=== PATIENT | male | born 1985 | race Caucasian/White ===

== ENCOUNTER → 2020-01-09 | Outpatient (CLI) | payer MEDICAID ==
--- NOTE | 2020-01-09 08:04 | MR ---
EXAMINATION TYPE: MR knee LT wo con DATE OF EXAM: 01/09/2020 7:38 AM COMPARISON: NONE HISTORY: Pain on Medial part of Left Knee. Hyperextended Knee, Swelling now after walking on it TECHNIQUE: Multiplanar, multisequence imaging of the left knee was performed. FINDINGS: MEDIAL MENISCUS: Anterior and posterior horns are intact without tear. LATERAL MENISCUS: Anterior and posterior horns are intact without tear. CRUCIATE LIGAMENTS: The anterior and posterior cruciate ligaments are intact and unremarkable. COLLATERAL LIGAMENTS: The medial collateral ligament and lateral collateral ligament complex are intact and unremarkable. EXTENSOR MECHANISM: Visualized quadriceps and patellar tendons are intact. EFFUSION: No evidence for joint effusion. POPLITEAL CYST: No popliteal/carballo cyst. TRICOMPARTMENT SPACES: The tricompartment joint spaces appear within normal limits. CARTILAGE: The articular cartilage is maintained without abnormal signal or full-thickness defect. BONE MARROW SIGNAL: Moderate bone marrow signal involving the medial femoral condyle without evidence for fracture. Smaller areas of bone contusion involving the lateral tibial plateau again without hue dence for fracture. OTHER: No additional significant abnormality is appreciated. IMPRESSION: 1. Moderate bone marrow signal involving the medial femoral condyle without evidence for fracture. Sm aller area of bone contusion involving the lateral tibial plateau again without evidence for fracture .
== END | disposition home or self-care (01) ==
LOC: RADMRIMAIN 06:58
PROVIDERS: ATTEND Orthopaedic Surgery
DX: S80.12XA Contusion of left lower leg, initial encounter (principal)

== ENCOUNTER → 2021-06-01 | Outpatient (CLI) | payer MEDICAID, OTHER | END | disposition home or self-care (01) | LOC: LABWHC1 15:30 | PROVIDERS: ATTEND Emergency Medicine | DX: Z20.822 Contact with and (suspected) exposure to COVID-19 (principal) | CPT/HCPCS: 87635 ==

== ENCOUNTER → 2021-06-02 | Outpatient (CLI) | payer MEDICAID, OTHER | END | disposition home or self-care (01) | LOC: LABWHC1 16:12 | PROVIDERS: ATTEND Emergency Medicine | DX: Z20.822 Contact with and (suspected) exposure to COVID-19 (principal) | CPT/HCPCS: 87635 ==

== ENCOUNTER 2024-06-23 10:46 | Emergency (ER) | payer MEDICAID, OTHER ==
[2024-06-23 10:53] VITALS: TEMP 98
[2024-06-23 11:33] LABS: HCT 53.8 % (39.0-53.0); HGB 17.7 gm/dL (13.0-17.5); MCH 30.5 pg (25.0-35.0); MCHC 32.9 g/dL (31.0-37.0); MCV 92.8 fL (80.0-100.0); Mean Platelet Volume 8.1; Platelet Count 269 k/uL (150-450); RDW 12.2 % (11.5-15.5); WBC 12.5 k/uL (3.8-10.6)
[2024-06-23 11:53] LABS: ALT 57 U/L (4-49); AST 32 U/L (17-59); African American GFR (CKD) >90 (>60 ml/min/1.73 sqM); Albumin 4.9 g/dL (3.5-5.0); Alkaline Phosphatase 35 U/L (38-126); Anion Gap 7 mmol/L; Blood Urea Nitrogen 11 mg/dL (9-20); Calcium 9.9 mg/dL (8.4-10.2); Carbon Dioxide 27 mmol/L (22-30); Chloride 104 mmol/L (98-107); Glucose 282 mg/dL (74-99); Non-African American GFR(CKD) >90 (>60 ml/min/1.73 sqM); Potassium 4.9 mmol/L (3.5-5.1); Sodium 138 mmol/L (137-145); Total Bilirubin 0.6 mg/dL (0.2-1.3); Total Protein 7.9 g/dL (6.3-8.2)
--- NOTE | 2024-06-23 12:25 | ED ---
General Adult HPI - General Chief complaint: Neuro Symptoms/Deficit Stated complaint: R side facial numbness Time Seen by Provider: 06/23/24 11:08 Source: patient, RN notes reviewed, old records reviewed Mode of arrival: ambulatory Limitations: no limitations - History of Present Illness Initial comments: Patient is a 38-year-old male who presents emergency department complaining of right-sided facial numbness as well as decreased strength on the right side of his face starting yesterday at approximately 10 or 11 AM. Is currently after 11 AM today. It has been over 24 hours of symptoms. 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 Has no other acute complaints at this time. No other symptoms. Denies weakness or numbness. Denies chest pain or shortness of breath. No cough, congestion. Denies any eye pain. Presents for further evaluation.Denies any current facial numbness but states he feels like his muscle strength on the right side of his face is weak - Related Data Previous Rx's Medication Instructions Recorded predniSONE [Deltasone] 0 mg PO DIRECTED #33 tab 06/23/24 valACYclovir HCL [Valacyclovir] 1,000 mg PO TID 7 Days #21 tab 06/23/24 Allergies Allergy/AdvReac Type Severity Reaction Status Date / Time No Known Allergies Allergy Verified 06/23/24 10:52 Review of Systems ROS Statement: Those systems with pertinent positive or pertinent negative responses have been documented in the HPI. Review of Systems: CONST: Denies fever EYES: Denies blurry vision ENT: Denies nasal congestion C/V: Denies Chest pain RESP: Denies shortness of breath GI: Denies abdominal pain : Denies dysuria SKIN: Denies rash. MSK: Denies joint pain. NEURO: Denies headache ROS Other: All systems not noted in ROS Statement are negative. Past Medical History Past Medical History: No Reported History History of Any Multi-Drug Resistant Organisms: None Reported Past Surgical History: No Surgical Hx Reported Past Psychological History: No Psychological Hx Reported Smoking Status: Current every day smoker Past Alcohol Use History: None Reported Past Drug Use History: Marijuana General Exam - General Exam Comments Initial Comments: General: Appears in no acute distress. HEAD: Normal with no signs of head trauma. EYES: PERRLA, EOMI, conjunctiva normal, no discharge. Pupils are 3 mm and equal bilaterally. ENT: Hearing grossly intact, normal oropharynx. RESPIRATORY: Clear breath sounds bilaterally. No wheezes, rales, or rhonchi. C/V: Regular rate and rhythm. S1 and S2 auscultated, no edema, peripheral pulses 2+ and intact throughout ABD: Abd is soft, nontender, nondistended EXT: Normal range of motion, no obvious deformity SKIN: No rashes or lesions observed on exposed skin. NEURO: Alert and oriented x 4. No focal sensory or strength deficits. NIH is technically 3D for the right sided facial paralysis/numbness. Patient has facial droop, decreased strength of the upper face as well in the eyelids and forehead. Consistent more with Estrada's palsy. Last known well was over 24 hours ago. Limitations: no limitations Course Vital Signs 06/23/24 06/23/24 10:50 12:49 Temperature 98 F Pulse Rate 89 87 Respiratory 20 16 Rate Blood Pressure 166/118 158/94 O2 Sat by Pulse 99 100 Oximetry Medical Decision Making - Medical Decision Making Was pt. sent in by a medical professional or institution (, PA, CORDUROY CUTTER OPERATOR, urgent care, hospital, or [facility]...) When possible be specific @ -No Did you speak to anyone other than the patient for history (EMS, parent, family, police, friend...)? What history was obtained from this source @ -No Did you review nursing and triage notes (agree or disagree)? Why? @ -I reviewed and agree with nursing and triage notes Were old charts reviewed (outside hosp., previous admission, EMS record, old EKG, old radiological studies, urgent care reports/EKG's, [facility] records)? Report findings @ -No old charts were reviewed Differential Diagnosis (chest pain, altered mental status, abdominal pain women, abdominal pain men, vaginal bleeding, weakness, fever, dyspnea, syncope, h eadache, dizziness, GI bleed, back pain, seizure, CVA, palpatations, mental health, musculoskeletal)? @ -CVA, Estrada's palsy, electrolyte abnormality. This list is not all inclusive. EKG interpreted by me (3pts min.). @ -As above X-rays interpreted by me (1pt min.). @ -None done CT interpreted by me (1pt min.). @ -None done U/S interpreted by me (1pt. min.). @ -None done What testing was considered but not performed or refused? (CT, X-rays, U/S, labs)? Why? @ -Recommended CT brain however patient declined. Recommended fluorescein staining the eye however patient declined. States he does not have insurance. Does not believe these are necessary at this time. He ultimately just wants treatment for Estrada's palsy and discharge. What meds were considered but not given or refused? Why? @ -None Did you discuss the management of the patient with other professionals (professionals i.e. , PA, CORDUROY CUTTER OPERATOR, lab, RT, psych nurse, social insurance specialist, paint laboratory technician, teacher, airfield services officer, special education case manager)? Give summary @ -No Was smoking cessation discussed for >3mins.? @ -No Was critical care preformed (if so, how long)? @ -Yes, 22 minutes Were there social determinants of health that impacted care today? How? (Homelessness, low income, unemployed, alcoholism, drug addiction, transportation, low edu. Level, literacy, decrease access to med. care, [facility], rehab)? @ -No Was there de-escalation of care discussed even if they declined (Discuss DNR or withdrawal of care, Hospice)? DNR status @ -No What co-morbidities impacted this encounter? (DM, HTN, Smoking, COPD, CAD, Cancer, CVA, ARF, Chemo, Hep., AIDS, mental health diagnosis, sleep apnea, morbid obesity)? @ -None Was patient admitted / discharged? Hospital course, mention meds given and route, prescriptions, significant lab abnormalities, going to OR and other pertinent info. @ -Patient presents with Estrada's palsy versus CVA. I did recommend workup for CVA despite symptoms occurring over 24 hours ago however patient declines CT imaging of the brain. Symptoms are more than likely Estrada's palsy however I did discuss with him that the safest option is to obtain a CT imaging which he declined. He understood the risks involved with this. We did settle on obtaining basic labs. I did inform him that he would have to sign out AMA since he is being the CT imaging which she was in agreement with. The patient was apprised of the potential risks of leaving the hospital AGAINST MEDICAL ADVICE, including serious complications, permanent disability, and . At the time of my interview the patient, the patient was alert, oriented, and capable. Patient signed AMA form, which was witnessed and signed by nursing staff, and placed in patient's chart. I urged the patient to return to the hospital as soon as possible to complete evaluation and treatment. Laboratory studies returned unremarkable except for hyperglycemia of 282 with no history of diabetes. EKG unremarkable. On reevaluation, patient continues to have the same symptoms. Discussed with him again and he would still like to leave AGAINST MEDICAL ADVICE without obtaining further workup. He will be discharged home AGAINST MEDICAL ADVICE. I will provide him with prescriptions for prednisone as well as Valtrex and provided with doses prior to discharge. Recommended follow-up with ophthalmology as well as his PCP. He will be given tape also to tape his eye shut and I recommended he obtain artificial tears for lubrication of the right eye. He was in agreement this plan. Undiagnosed new problem with uncertain prognosis? @ -No Drug Therapy requiring intensive monitoring for toxicity (Heparin, Nitro, Insulin, Cardizem)? @ -No Were any procedures done? @ -No Diagnosis/symptom? @ -Estrada's palsy, left AGAINST MEDICAL ADVICE Acute, or Chronic, or Acute on Chronic? @ -Acute Uncomplicated (without systemic symptoms) or Complicated (systemic symptoms)? @ -Complicated Side effects of treatment? @ -No Exacerbation, Progression, or Severe Exacerbation? @ -No Poses a threat to life or bodily function? How? (Chest pain, [place], [place], pneumonia, PE, COPD, DKA, ARF, appy, cholecystitis, CVA, Diverticulitis, Homicidal, Suicidal, threat to staff... and all critical care pts) @ -Potentially, yes - Lab Data Result diagrams: 06/23/24 11:18 06/23/24 11:18 Lab Results 06/23/24 06/23/24 Range/Units 11:18 11:18 WBC 12.5 H (3.8-10.6) k/uL RBC 5.80 (4.30-5.90) m/uL Hgb 17.7 H (13.0-17.5) gm/dL Hct 53.8 H (39.0-53.0) % MCV 92.8 (80.0-100.0) fL MCH 30.5 (25.0-35.0) pg MCHC 32.9 (31.0-37.0) g/dL RDW 12.2 (11.5-15.5) % Plt Count 269 (150-450) k/uL MPV 8.1 Neutrophils % (Manual) 40 % Lymphocytes % (Manual) 45 % Monocytes % (Manual) 5 % Eosinophils % (Manual) 9 % Basophils % (Manual) 1 % Neutrophils # (Manual) 5.00 (1.3-7.7) k/uL Lymphocytes # (Manual) 5.63 H (1.0-4.8) k/uL Monocytes # (Manual) 0.63 (0-1.0) k/uL Eosinophils # (Manual) 1.13 H (0-0.7) k/uL Basophils # (Manual) 0.13 (0-0.2) k/uL Nucleated RBCs 0 (0-0) /100 WBC Manual Slide Review Performed Sodium 138 (137-145) mmol/L Potassium 4.9 (3.5-5.1) mmol/L Chloride 104 (98-107) mmol/L Carbon Dioxide 27 (22-30) mmol/L Anion Gap 7 mmol/L BUN 11 (9-20) mg/dL Creatinine 0.61 L (0.66-1.25) mg/dL Est GFR (CKD-EPI)AfAm >90 (>60 ml/min/1.73 sqM) Est GFR (CKD-EPI)NonAf >90 (>60 ml/min/1.73 sqM) Glucose 282 H (74-99) mg/dL Calcium 9.9 (8.4-10.2) mg/dL Magnesium 2.0 (1.6-2.3) mg/dL Total Bilirubin 0.6 (0.2-1.3) mg/dL AST 32 (17-59) U/L ALT 57 H (4-49) U/L Alkaline Phosphatase 35 L (38-126) U/L Total Protein 7.9 (6.3-8.2) g/dL Albumin 4.9 (3.5-5.0) g/dL - EKG Data -: EKG Interpreted by Me EKG Comments: 12-lead Electrocardiogram Interpretation Note EKG was reviewed and interpreted by myself. 12-lead ECG performed at 1117 is interpreted by me as revealing normal sinus rhythm at a rate of 85 beats per minute. [place] is normal. MS interval is 128 ms, QRS durations 170 ms, QTc is 395 ms.. There were no ST or T wave abnormalities to suggest myocardial ischemia or injury. R wave progression across the precordium was satisfactory. By my interpretation this EKG is non-diagnostic for acute ischemia. Critical Care Time Critical Care Time: Yes Total Critical Care Time: 22 Disposition Clinical Impression: Estrada's palsy Disposition: LEFT AGAINST MEDICAL ADVICE Instructions (If sedation given, give patient instructions): Estrada Palsy (ED) Additional Instructions: I believe you are likely suffering for Estrada's palsy but as we discussed, I did recommend CT imaging of the brain which you declined. Therefore you will be discharged AGAINST MEDICAL ADVICE. Please return if any worsening symptoms. Please tape your eye shut at night and use [id number] artificial tears lubrication for the right eye. Follow-up with your PCP as well as eye doctor for further evaluation. Take prescriptions as prescribed. Prescriptions: predniSONE [Deltasone] 0 mg PO DIRECTED #33 tab valACYclovir HCL [Valacyclovir] 1,000 mg PO TID 7 Days #21 tab Is patient prescribed a controlled substance at d/c from ED?: No Referrals: Dandre Kaur DO [Primary Care Provider] - 1-2 days Mildred Villa MD [STAFF PHYSICIAN] - 1-2 days Time of Disposition: 12:24
[2024-06-23 12:38] LABS: Basophils # (M) 0.13 k/uL (0-0.2); Eosinophils # (M) 1.13 k/uL (0-0.7); Lymphocytes # (M) 5.63 k/uL (1.0-4.8); Monocytes # (M) 0.63 k/uL (0-1.0); Neutrophils % (M) 40 %; Nucleated Red Blood Cells 0 /100 WBC (0-0); Total Cells Counted 100
[2024-06-23] MEDS: predniSONE 20 MG TAB PO STA (12:45)
[2024-06-23] MEDS: valACYclovir HCL 1,000 MG TABLET PO STA (12:45)
[2024-06-23 12:50] VITALS: BP 158/94; PULSE 87; RESP 16
== END 2024-06-23 12:49 | disposition left against medical advice (07) ==
LOC: EC 10:46
DX: G51.0 Bell's palsy (principal); F17.200 Nicotine dependence, unspecified, uncomplicated; Z53.29 Procedure and treatment not carried out because of patient's decision for other reasons
CPT/HCPCS: 36415; 93005; 80053; 83735; 85025; 99284; J7512